=== PATIENT | male | born 1980 | race Caucasian/White ===

== ENCOUNTER → 2021-08-20 09:34 | Outpatient (CLI) | payer OTHER, SELFPAY ==
[2021-08-21 19:46] LABS: SARS-CoV-2 RNA PCR Negative
== END ==
PROVIDERS: PCP Family Medicine; Visit Provider Family Medicine
DX: R05.9 Cough, unspecified (principal); Z20.822 Contact with and (suspected) exposure to COVID-19
CPT/HCPCS: C9803; U0003; U0005